=== PATIENT | male | born 1985 | race Asian ===

== ENCOUNTER 2023-03-07 05:27 | Day surgery (SDC) | payer OTHER ==
[~2023-03-07] VITALS: Ht 172.7 cm; Wt 100.2 kg
[~2023-03-07 05:27] MED LIST: LR 1,000 ML IV SCH; Ondansetron 4 MG/2 ML VIAL IV PRN
[2023-03-07 05:52] VITALS: BP 131/91; PULSE 80; TEMP 97.3
[2023-03-07] MEDS ORDERED: AZULFIDINE500 MG/TAB PO (05:59)
[2023-03-07] MEDS ORDERED: PRILOSEC 20MG20 MG PO (05:59)
[2023-03-07] MEDS ORDERED: Lidocaine PF 2% (20 MG/ML) 5 ML VIAL ONE (07:01)
[2023-03-07 07:43] VITALS: BP 118/78; PULSE 74; TEMP 96.6
[2023-03-07 08:00] VITALS: BP 125/84; PULSE 71
--- NOTE | 2023-03-07 08:17 | NUR ---
0743- PATIENT RETURNS TO [facility] VIA CART. PT AWAKE AND ALERT. RESPIRATIONS UNLABORED. AMBULATED TO RECLINER CHAIR WITH 2:1 SBA. PT DENIES NAUSEA OR ABDOMINAL PAIN. HOOKED UP TO MONITOR AND VS OBTAINED. CALL LIGHT AT SIDE AND PRESENT. 0755- PATIENT TOLERATING COFFEE AND MUFFIN WITHOUT NAUSEA OR PAIN. 0803- D/C INSTRUCTIONS REVIEWED WITH PATIENT. PT VERBALIZED UNDERSTANDING AND A COPY OF INSTRUCTIONS PROVIDED IN D/C FOLDER. 0807- DR. ALEJANDRO IN ROOM SPEAKING WITH PATIENT. 0810- PATIENT DRESSES SELF. 0817- PATIENT DISCHARGED FROM UNIT VIA W/C TO A PERSONAL VEHICLE. PT LEFT HOSPITAL IN STABLE CONDITION.
== END 2023-03-07 08:17 | disposition home or self-care (01) ==
LOC: SDCO 05:27
DX: K63.5 Polyp of colon (principal); K51.911 Ulcerative colitis, unspecified with rectal bleeding
CPT/HCPCS: J2704; J7120